=== PATIENT | male | born 1955 | race Caucasian/White ===

== ENCOUNTER → 2016-09-12 | Outpatient (CLI) | payer OTHER ==
--- NOTE | 2016-09-12 15:28 | DX ---
Chest, PA and Lateral History: Throat cancer Comparison: None Findings: Lungs are clear, without pulmonary nodule, mass, infiltrate or consolidation. Heart size is normal. There is no adenopathy or pleural effusion . 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 Impression: No evidence of metastatic disease or a second lung primary tumor.
== END ==
LOC: FIMAGING 14:59
PROVIDERS: ATTEND Otolaryngology
DX: C14.0 Malignant neoplasm of pharynx, unspecified (principal); Z12.89 Encounter for screening for malignant neoplasm of other sites